=== PATIENT | female | born 1995 | race Two or more races ===

== ENCOUNTER 2016-12-30 23:14 | Emergency (ER) | payer OTHER, BC ==
[~2016-12-30] VITALS: Ht 162.6 cm; Wt 61.1 kg
[2016-12-30] MEDS ORDERED: CRYSELLE1 EACH PO (23:37)
[2016-12-31 00:56] LABS: AMPHETAMINE NEGATIVE (500 ng/mL); BARBITURATES NEGATIVE (200 ng/mL); BENZODIAZEPINES NEGATIVE (150 ng/mL); COCAINE NEGATIVE (150 ng/mL); INTERNAL CONTROLS VALID? YES; METHADONE NEGATIVE (200 ng/mL); METHAMPHETAMINE NEGATIVE (500 ng/mL); OPIATES (MORPHINE) NEGATIVE (100 ng/mL); OXYCODONE NEGATIVE (100 ng/mL); PHENCYCLIDINE NEGATIVE (25 ng/mL); PROPOXYPHENE NEGATIVE (300 ng/mL); THC CANNABINOIDS NEGATIVE (50 ng/mL); TRICYCLIC ANTIDEPRESSANTS NEGATIVE (300 ng/mL)
[2016-12-31 02:01] VITALS: BP 111/83
== END 2016-12-31 02:14 | disposition home or self-care (01) ==
LOC: EME 23:14
PROVIDERS: Physician Assistant Medical
DX: R68.84 Jaw pain (principal); Z04.71 Encounter for examination and observation following alleged adult physical abuse; Z04.2 Encounter for examination and observation following work accident
CPT/HCPCS: 70110; 99281; 99284